=== PATIENT | female | born 1975 | race Caucasian/White ===

== ENCOUNTER → 2016-10-09 | Outpatient (CLI) | payer BC | LOC: FIMAGING 11:41 | PROVIDERS: ATTEND Neurological Surgery | DX: Z47.89 Encounter for other orthopedic aftercare (principal); Z98.1 Arthrodesis status ==

== ENCOUNTER 2017-03-26 06:16 | Day surgery (SDC) | payer BC ==
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
[2017-03-26] MEDS ORDERED: LIDOCAINE 1% 2 ML INJ ID PRN (06:23)
[2017-03-26] MEDS ORDERED: LR 1,000 ML IV ONE (06:23)
[2017-03-26] MEDS ORDERED: LIDOCAINE 1% 2 ML INJ ONE (06:30)
[2017-03-26 06:44] VITALS: PULSE 69
[2017-03-26] MEDS ORDERED: MIDAZOLAM 2 MG/2 ML VIAL IVP ONE (07:06)
[2017-03-26] MEDS ORDERED: LIDOCAINE 1% 300 MG/30 ML SDV ONE (07:06)
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
[2017-03-26] MEDS ORDERED: SILVER NITRATE APPLICATOR 1 APPL TP ONE (07:07)
[2017-03-26] MEDS ORDERED: VASOPRESSIN 20 UNIT/ML VIAL ONE (07:07)
[2017-03-26] MEDS ORDERED: ACETIC ACID IRR SOLN 0.25% 1,000 ML BTL ONE (07:08)
[2017-03-26] MEDS ORDERED: POTASSIUM IODIDE/IODINE (LUGOL'S SOLN) 500 ML PO ONE (07:15)
[2017-03-26] MEDS ORDERED: DEXAMETHASONE 4 MG/ML VIAL ONE (07:17)
[2017-03-26] MEDS ORDERED: ONDANSETRON 4 MG/2 ML VIAL ONE (07:17)
[2017-03-26] MEDS ORDERED: fentaNYL 100 MCG/2 ML INJ ONE (07:17)
[2017-03-26] MEDS ORDERED: PROPOFOL 200 MG/20 ML VIAL ONE (07:17)
[2017-03-26] MEDS ORDERED: LIDOCAINE 2% 100 MG/5 ML SYR ONE (07:17)
[2017-03-26] MEDS ORDERED: MONSELS-FERRIC SUBSULFATE 8 GM SDV TP ONE (07:18)
--- NOTE | 2017-03-26 07:22 | PDHPUP ---
History & Physical Update H&P update statement: This history and physical update is based on an assessment of the patient which was completed after admission or registration (within 24 hours), but prior to the surgery/procedure. H&P update: H&P reviewed & patient examined H&P changes: reviewed possibility of cutting IUD strings with procedure making it harder to remove the iud and possibility of dislodging IUD
[2017-03-26] MEDS ORDERED: fentaNYL 100 MCG/2 ML INJ IVP PRN (08:08)
[2017-03-26] MEDS ORDERED: NALOXONE HCL 0.4 MG/ML INJ IVP PRN (08:08)
[2017-03-26] MEDS ORDERED: MEPERIDINE 25 MG/ML SYR IVP PRN (08:08)
[2017-03-26] MEDS ORDERED: HYDROCODONE/APAP 5/325 TAB PO PRN (08:08)
[2017-03-26] MEDS ORDERED: HYDROmorphONE/DILAUDID 1 MG/ML SYR IVP PRN (08:08)
[2017-03-26] MEDS ORDERED: ACETAMINOPHEN 500 MG TAB PO PRN (08:08)
[2017-03-26] MEDS ORDERED: DEXAMETHASONE 4 MG/ML VIAL IVP PRN (08:08)
[2017-03-26] MEDS ORDERED: PROMETHAZINE HCL 25 MG/ML INJ IVP PRN (08:08)
[2017-03-26] MEDS ORDERED: OXYCODONE/APAP 5/325 TAB PO PRN (08:08)
[2017-03-26] MEDS ORDERED: ONDANSETRON 4 MG/2 ML VIAL IVP PRN (08:08)
--- NOTE | 2017-03-26 08:08 | POSTANESTH ---
Post Anesthetic Evaluation Cardiovascular Status: Normal, Stable, Similar to Pre-Op Cond Respiratory Status: Normal, Stable, Similar to Pre-op Cond. Level of Consciousness/Mental Status: Can Participate in Eval, Moderately Sleepy Pain Control: Adequate, Prn Tx Ordered Nausea/Vomiting Control: Adequate, Prn Tx Ordered Complications Possibly Related to Anesthesia: None Noted
[2017-03-26] MEDS ORDERED: KETOROLAC 30 MG/1 ML SDV ONE (08:14)
[2017-03-26 09:21] VITALS: RESP 16
[2017-03-26 09:29] VITALS: TEMP 97.3
[2017-03-26 09:42] VITALS: BP 111/77; O2SAT 97
== END 2017-03-26 09:51 | disposition home or self-care (01) ==
LOC: FSGY 06:16
PROVIDERS: ATTEND Obstetrics & Gynecology
PROC: 0UBC7ZZ Excision of Cervix, Via Natural or Artificial Opening (ICD-10-PCS; principal; 2017-03-26 07:15)
PROC: 0UDB7ZZ Extraction of Endometrium, Via Natural or Artificial Opening (ICD-10-PCS; principal; 2017-03-26 07:15)
DX: D06.9 Carcinoma in situ of cervix, unspecified (principal); N72 Inflammatory disease of cervix uteri; F32.9 Major depressive disorder, single episode, unspecified; F17.210 Nicotine dependence, cigarettes, uncomplicated; Z98.1 Arthrodesis status
CPT/HCPCS: J1100; J1885; J2001; J2250; J2405; J2704; J3010

== ENCOUNTER 2017-09-22 01:16 | Emergency (ER) | payer BC ==
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
[2017-09-22] MEDS ORDERED: NS 1,000 ML IV ONE (01:54)
[2017-09-22 02:02] LABS: PLATELET COUNT 264 10^3/uL (150-400)
[2017-09-22 15:33] VITALS: BP 133/64; PULSE 74; RESP 18; TEMP 98.1; O2SAT 95
== END 2017-09-22 15:46 | disposition home or self-care (01) ==
PROC: 3E0337Z Introduction of Electrolytic and Water Balance Substance into Peripheral Vein, Percutaneous Approach (ICD-10-PCS; principal; 2017-09-22)
DX: F10.920 Alcohol use, unspecified with intoxication, uncomplicated (principal); F32.9 Major depressive disorder, single episode, unspecified; F17.200 Nicotine dependence, unspecified, uncomplicated
CPT/HCPCS: 80305; G0480

== ENCOUNTER 2017-12-11 04:31 | Observation (INO) | payer BC ==
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
[2017-12-11] MEDS ORDERED: NS 1,000 ML IV ONE ×2 (04:45→05:00)
[2017-12-11 05:02] LABS: PLATELET COUNT 380 10^3/uL (150-400)
[2017-12-11] MEDS ORDERED: fentaNYL 100 MCG/2 ML INJ IVP ONE ×2 (05:05→06:01)
[2017-12-11] MEDS ORDERED: IOPAMIDOL (ISOVUE-300) 100 ML BTL ONE (05:09)
[2017-12-11 05:10] LABS: CREATINE KINASE 792 IU/L (0-156)
[2017-12-11] MEDS ORDERED: NALOXONE HCL 0.4 MG/ML INJ IVP PRN (06:07)
[2017-12-11 06:13] LABS: PLATELET COUNT 335 10^3/uL (150-400)
[2017-12-11] MEDS ORDERED: ACETAMINOPHEN 325 MG TAB PO SCH (06:15)
[2017-12-11] MEDS ORDERED: ONDANSETRON DISINTEGRATING 4 MG TAB PO PRN (06:15)
[2017-12-11] MEDS ORDERED: LR 1,000 ML IV SCH (06:30)
[2017-12-11] MEDS: ACETAMINOPHEN 500 MG TAB PO SCH ×2 (07:30→16:19)
[2017-12-11] MEDS: HYDROmorphone HCL/NS 0.5 MG/ML SYR IVP PRN ×6 (07:56→22:18)
[2017-12-11] MEDS ORDERED: POLYETHYLENE GLYCOL 3350 17 GM PKT PO PRN (10:18)
[2017-12-11] MEDS ORDERED: LACTULOSE 20 GM/30 ML UDCUP PO PRN (10:18)
[2017-12-11] MEDS ORDERED: MAGNESIUM HYDROXIDE 30 ML UDCUP PO PRN (10:18)
[2017-12-11] MEDS ORDERED: BISACODYL 10 MG SUPP PR PRN (10:18)
--- NOTE | 2017-12-11 10:20 | GCON ---
[f rep st] CONSULTATION NEUROSURGICAL CONSULTATION ADDENDUM TO PREVIOUSLY DICTATED REPORT The patient was seen and examined by me personally around noon today. Her imaging studies were also reviewed. I agree with Rafael Valadez's plan and I have also spoken to Dr. Benjamin Goetz about the patient. /[id number] Dictated By: Jose Askew MD [id number], [facility] ORIGINAL REPORT CHIEF COMPLAINT: Neck pain, back pain after fall. HISTORY OF PRESENT ILLNESS: The patient is a 42-year-old female who has a history of a previous neck fracture with central cord syndrome as well as depression. She had a previous C5-6 and C6-7 anterior cervical diskectomy and arthrodesis by Dr. Fay Bassett in approximately 2014. She was apparently intoxicated at her boyfriend's house when she possibly fell down some stairs. She was ambulatory after this event, but was apparently knocking on the wrong door. She was contacted by police, and EMS was contacted. They transported the patient by ambulance to the [facility] emergency department. 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 Neurosurgical consultation was requested. She currently complains of neck pain and back pain. She denies any upper extremity radicular pain or weakness. She denies any lower extremity pain , weakness, paresthesias, ataxia, bowel or bladder problems. PAST MEDICAL HISTORY: 1. Depression. 2. Central cord syndrome. 3. Previous cervical fusion. PAST SURGICAL HISTORY: Includes C5-6, C6-7 anterior cervical diskectomy and arthrodesis in approximately 2014. MEDICATIONS: Prior to admission are Lyrica. FAMILY HISTORY: Patient has no family history of spine problems. SOCIAL HISTORY: Patient is single and does not have any children. She does smoke, does drink alcohol, and has been using some recreational cannabis for her pain. REVIEW OF SYSTEMS: Negative. PHYSICAL EXAM: GENERAL: Patient is a 42-year-old female lying in bed in mild- to-moderate distress. HEAD, EYES, EARS, NOSE, AND THROAT: Negative to drainage. EXTREMITIES: [place], warm, and dry. NECK: She is wearing a hard cervical collar. NEUROLOGICAL: Patient is awake, alert, oriented x4. Pupils equal, round, reactive to light. Extraocular motions are intact. There is no evidence of facial droop. Tongue and uvula are midline. Spinal access muscles are intact. Her motor strength appears to be 5/5 in arms and legs. Sensation is grossly intact to light touch in her arms and legs. Deep tendon reflexes are 1+/4 in bilateral biceps, triceps, brachioradialis, patellar, and Achilles. There is negative Dev's with no clonus. DIAGNOSTIC STUDIES: A CT scan of the cervical spine without contrast shows preservation of the sagittal alignment. There are postoperative changes from the C5-6 and C6-7 anterior cervical diskectomy and arthrodesis. There are lucencies through both of those levels with disruption of the hardware consistent with a pseudoarthrosis of both levels. There is no evidence of an acute fracture. A CT scan of the abdomen and pelvis with sagittal reconstructions shows an acute L1, L2, L3, and L4 compression fracture. There is moderate degeneration collapse at L5-S1 level. There is no evidence of retropulsion. IMPRESSION: This is a 42-year-old female with C5-6 and C6-7 pseudoarthrosis following her previous cervical fusion in [address] Bassett. She also has an acute L1, L2, L3, and L4 compression fracture after a fall. She is neurologically stable. PLAN: All the above discussed in detail with the patient. At this point in time, she did have neck pain with palpation, so we will keep her in the hard collar. Her pseudoarthrosis, we can follow up with on an outpatient basis and determine whether or not she would wish to proceed with surgical intervention to fix this nonunion. In regard to her lumbar spine, we will obtain an MRI of the lumbar spine without contrast to better evaluate these fractures. We will also contact [facility] [employer] to have her fit with a Kensett brace. We would like this Carmen brace to be worn at all times when out of bed. We will obtain standing x-rays of her lumbar spine once she has been fit with the brace. We will attempt to clear her cervical spine once her neck pain improves.. Please call with any neurological changes. /[id number]/MODL MTDD
[2017-12-11] MEDS ORDERED: LORazepam 2 MG/ML INJ IVP PRN (10:21)
[2017-12-11] MEDS ORDERED: LIDOCAINE/DEXTROSE 500 ML IV SCH (10:30)
[2017-12-11] MEDS: PREGABALIN 100 MG CAP PO SCH ×2 (10:33→20:09)
--- NOTE | 2017-12-11 10:35 | GHP ---
[f rep st] PREOP HISTORY AND PHYSICAL DATE OF ADMISSION: 12/11/2017 HISTORY: The patient is a 42-year-old female who was found knocking on the door of a house or dwelling which was not hers by the police. Her significant other was contacted, and she was brought to the hospital by POV for evaluation. She was intoxicated with a blood alcohol of 277. She had taken Lyrica for the first time after more than a month's hiatus yesterday. 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 Fay Bassett. The neck was stabilized by anterior pinning. On today's evaluation, one of the pins is fractured. The patient has no recollection for the events of this evening, but given her injuries, it is felt that she has fallen. She has a contusion on her occiput. She has a right 1st rib fracture. She has tenderness of her manubrium. She has tenderness of her left arm without evidence of humeral or elbow fracture. She has 2+ blood in her urine, but only 5-10 red cells, as well as an elevated CPK, indicating myoglobinuria. She has anterior wedging of L1, L2, L3, and L4 with a transverse fracture of L5. I was asked to come see her for evaluation, admission for trauma observation. First interaction was at approximately 6:20. Note, she had arrived at 3:30 and I was called at 6:10, when the studies were available. At that point, she was more confused. Now, at 9:30, on re-evaluation, she is much more awake. She is complaining bitterly of lumbar pain, left elbow pain, and now right ankle pain. SOCIAL HISTORY: She started smoking at age 17 and smoked at a peak of 1 pack per day but is now down to a quarter pack per day. She admits to approximately 10 shots of vodka last night and report that she drinks 3-4 days per week. ALLERGIES: She has no known drug allergies. MEDICATIONS: The medications she stopped over a month ago were Wellbutrin 300 mg a day and Lyrica 200 mg (which she says she was taking 3 times a day). PAST SURGICAL HISTORY: Prior surgeries have included a pinning of her right index finger with subsequent pin removal for a spiral fracture. She has had a tonsillectomy, wisdom tooth extraction, a left orbital floor reconstruction from a presumed blowout fracture. She has had a cervical cone biopsy. PAST MEDICAL HISTORY: Although there is no history of rheumatic fever, she did have scarlet fever twice as a young girl. There is no history of TB or hepatitis. She has not had a transfusion. REVIEW OF SYSTEMS: She has had a concussion. She has had her nose broken 6 times. She has 1 right upper dental crown. She has never had a mammogram. Her last Pap smear was 6 months ago and had abnormal cells, resulting in the cone biopsy mentioned above. There are no limits on her activities. No history of steroid use. 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 PHYSICAL EXAMINATION: VITAL SIGNS: On admission, she had a blood pressure 130/ 90 at 1:33. Currently, her blood pressure is 106/73. GENERAL: She is awake, alert, and pleasant. NEUROLOGIC: She is oriented to person, place, and time. GCS is 15. She is moving all extremities and has equal strength in both hands and feet, though it is painful for her to flex her hips bilaterally because of her back issue. I do not detect any focal lateralizing neurologic finding. HEENT: Skull has a small hematoma in the occiput. She is in a cervical collar , and that is not removed at this time. CHEST: She is tender in the right upper chest and manubrium sternum. Her chest is otherwise nontender to lateral compression. EXTREMITIES: Her right upper extremity is totally unremarkable and has full range of motion. Left upper extremity is tender in the medial posterior aspect of the distal forearm. She has full range of motion of the elbow joint. Hands are unremarkable. Extremities are unremarkable except for the right ankle, which is tender on the posterior aspect of the medial malleolus (followup x-ray pending). CARDIAC: Shows S1, S2 to be normal with normal split of S2 without murmurs, rubs, or gallops. ABDOMEN: Soft, nontender. PELVIS: Stable to AP and lateral compression. BACK: On rolling her on her side, her back is palpably tender over the lumbar region. There are no injuries to her back. LABORATORY DATA: Her anion gap was initially 21 with a CK of 792. Her beta HCG was negative. Her UA had, as mentioned above, 2+ blood and only 5-15 red cells per high-power field. Her urine was also positive for marijuana. Her white blood cell count on admission was 31, which dropped to 26, and her hematocrit dropped from 46 to 41. X-rays of her left humerus were negative. Her neck appears to be in line. Neurosurgery will see her and evaluate further , possibly with an MRI. She does have a right 1st rib fracture, has the anterior wedging of L1, L2, L3, and L4 with a transverse fracture of L5. IMPRESSION: Patient whose trauma is unknown but suspected to be a fall of a fair distance with a hematoma in her occiput, a right first rib fracture, a fracture of the pinning of C5. L1, L2, L3, and L4 fractures with an L5 transverse fracture. Myoglobinuria. She has an anion gap which I presume is due to alcohol. Followup laboratories will be obtained. At this point, awaiting Neurosurgery's input. Multimodal pain control will be used. Observation for ETOH withdrawal will be maintained. Neurosurgery to see her today. /[id number]/MODL MTDD
[2017-12-11] MEDS ORDERED: KETAMINE 500 MG in D5W 500 ML IV SCH (11:00)
[2017-12-11] MEDS: LIDOCAINE 4%/MENTHOL 1% PATCH TD SCH (11:34)
[2017-12-11] MEDS: FOLIC ACID 1 MG TAB PO SCH (11:35)
[2017-12-11] MEDS: MULTIVITAMINS 1 EACH TAB PO SCH (11:35)
[2017-12-11] MEDS: KETOROLAC 30 MG/1 ML SDV IVP SCH ×2 (11:35→17:51)
[2017-12-11] MEDS: PANTOPRAZOLE SODIUM 40 MG TAB PO SCH ×2 (11:35→20:10)
--- NOTE | 2017-12-11 11:38 | ASMTCASEMG ---
Living Arrangements What is your living Answers: With Partner arrangement? Who do you live with? Type Of Residence What kind of residence do Answers: Apartment you live in? Discharge Plan Comments Coordination Status Comments Notes: Patient is a 42yo single woman who lives with her boyfriend in [place]. Patient had taken her Lyrica for the first time in over a month and admitted to drinking 10 shots of vodka and was brought to the hospital after having been found knocking on the door of a house that was not hers. BAL was 277. Patient's trauma is unknown but it is thought she had a fall of a fair distance with a hematoma in her occiput, a right first rib fracture, and a fracture of the pinning of C5. L1,2,3,4 fractures with an L5 transverse fracture. PT/OT/SPL/Inpatient rehab ordered. Cage completed. D/C plan TBD. CM will follow. Date Signed: 12/11/2017 11:38 AM Electronically Signed By:Melinda Díaz LCSW
[2017-12-11] MEDS ORDERED: KETOROLAC 30 MG/1 ML SDV IVP SCH (12:00)
--- NOTE | 2017-12-11 16:47 | ASMTCAGE ---
CAGE Do you feel you ought to Answers: Yes cut down on your drinking or drug use? Do people annoy you by Answers: No criticizing your drinking or drug use? Do you feel guilty about Answers: Yes your drinking or drug use? 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 Additional Comments Patient is receptive to resources and is ready to get sober. Date Signed: 12/11/2017 04:47 PM Electronically Signed By:Melinda Díaz LCSW
--- NOTE | 2017-12-11 17:10 | ASMTCMCOM ---
CM Note CM Note Notes: Spoke with patient about who she wants to serve as proxy and she named her sister,Cherie and her boyfriend Esequiel. Spoke with Rafael who is willing to serve and left the paperwork with the charge nurse for patient to sign when he comes in at 7:00. CM will speak with her sister tomorrow regarding the proxy process. Completed the CAGE. Patient is receptive to A and D resources which CM will go over with her in the morning. CM will follow. Date Signed: 12/11/2017 05:10 PM Electronically Signed By:Melinda Díaz LCSW
[2017-12-11] MEDS: SENNOSIDES/DOCUSATE SODIUM TAB PO SCH (20:09)
[2017-12-11] MEDS: PATCH REMOVAL 1 EA PATCH TD SCH (23:46)
[2017-12-12] MEDS: KETOROLAC 30 MG/1 ML SDV IVP SCH ×4 (00:26→17:31)
[2017-12-12] MEDS: ACETAMINOPHEN 500 MG TAB PO SCH ×4 (00:27→22:29)
[2017-12-12] MEDS: HYDROmorphone HCL/NS 0.5 MG/ML SYR IVP PRN ×4 (02:16→08:59)
[2017-12-12 05:06] LABS: PLATELET COUNT 231 10^3/uL (150-400)
--- NOTE | 2017-12-12 07:35 | SOAPPROG ---
DAYNA Progress Note Assessment/Plan: Assessment: 42 yo F sp fall with L1, L2, L3, L4 acute compression fractures with pseudoarthrosis at C5/6, C6/7 from previous ACDF 3 years ago Plan: neuro: stable and doing better overall MRI with acute fractures at L1-4 with chronic DJD/modic changes at L5/S1 patient should wear jewit brace at all times when out of bed will check standing x-rays of lumbar spine to evaluate alignment of fractures with brace on continued neck pain with palpation, will keep hard collar for now PT/OT ok to transfer to floor when cleared by Trauma if standing x-rays are stable, then ok to discharge routine neuro checks please call with neuro changes discussed with Dr Menchaca 12/12/17 07:31 Subjective: continued back pain and neck pain, no arm pain, no weakness. Objective: Vital Signs Temp Pulse Resp BP Pulse Ox 36.9 C 79 17 123/85 H 98 12/11/17 11:42 12/12/17 04:00 12/12/17 04:00 12/12/17 04:00 12/12/17 04:00 Laboratory Results 12/12/17 04:40 12/12/17 04:40 12/11/17 12/12/17 12/13/17 05:59 05:59 05:59 Intake Total 5556 Output Total 3250 Balance 2306 AAOX4, +FC PERRL, EOMI, no facial droop 5/5 + light touch ICD10 Worksheet Patient Problems: Problems Problem Status Onset Alcohol intoxication Acute Compression fracture of L1 lumbar vertebra Acute L2 vertebral fracture Acute L3 vertebral fracture Acute L4 vertebral fracture Acute Multiple contusions Acute Rib fracture Acute Central cord syndrome Acute Cervical stenosis of spine Acute Fracture of orbital floor, blow-out, left, closed Acute Upper extremity pain Acute
[2017-12-12] MEDS: LIDOCAINE 4%/MENTHOL 1% PATCH TD SCH (08:58)
[2017-12-12] MEDS: PREGABALIN 100 MG CAP PO SCH ×2 (08:59→20:32)
[2017-12-12] MEDS: FOLIC ACID 1 MG TAB PO SCH (08:59)
[2017-12-12] MEDS: PANTOPRAZOLE SODIUM 40 MG TAB PO SCH ×2 (08:59→20:32)
[2017-12-12] MEDS: MULTIVITAMINS 1 EACH TAB PO SCH (08:59)
[2017-12-12] MEDS: THIAMINE HCL 500 MG in NS 100 ML IV SCH (08:59)
[2017-12-12] MEDS: SENNOSIDES/DOCUSATE SODIUM TAB PO SCH ×2 (08:59→20:32)
[2017-12-12] MEDS: HYDROmorphONE/DILAUDID 2 MG TAB PO PRN ×3 (14:15→20:33)
--- NOTE | 2017-12-12 16:18 | ASDISCHSUM ---
Discharge Information Plan Status:Home with No Needs Medically Cleared to Leave:12/12/2017 Discharge Date:12/12/2017 CM D/C Disposition:Home, Routine, Self-Care ADT D/C Disposition: Projected Discharge Date:12/12/2017 12:00 AM Transportation at D/C: Discharge Delay Reason: Follow-Up Date:12/12/2017 12:00 AM Discharge Slot: Final Diagnosis: Placement Information Patient Contact Information Contact Name:CAROLA Relationship:Other Address:[address] City:[place] Alternate Phone: State/Zip Code:[place] [address] Email: Financial Information Financial Class:HMO and PPO Plans Primary Plan Desc: OUT OF STATE PPO Primary Plan Number:[id number] Secondary Plan Desc: Secondary Plan Number: Assessment Information [facility] Initial CM Assessment Living Arrangements What is your living Answers: With Partner arrangement? Who do you live with? Type Of Residence What kind of residence do Answers: Apartment you live in? Discharge Plan Comments Coordination Status Comments Notes: Patient is a 42yo single woman who lives with her boyfriend in [place]. Patient had taken her Lyrica for the first time in over a month and admitted to drinking 10 shots of vodka and was brought to the hospital after having been found knocking on the door of a house that was not hers. BAL was 277. Patient's trauma is unknown but it is thought she had a fall of a fair distance with a hematoma in her occiput, a right first rib fracture, and a fracture of the pinning of C5. L1,2,3,4 fractures with an L5 transverse fracture. PT/OT/SPL/Inpatient rehab ordered. Cage completed. D/C plan TBD. CM will follow. Date Signed: 12/11/2017 11:38 AM Electronically Signed By:Melinda Díaz LCSW CAGE Questionnaire CAGE Do you feel you ought to Answers: Yes cut down on your drinking or drug use? Do people annoy you by Answers: No criticizing your drinking or drug use? Do you feel guilty about Answers: Yes your drinking or drug use? 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 Additional Comments Patient is receptive to resources and is ready to get sober. Date Signed: 12/11/2017 04:47 PM Electronically Signed By:Melinda Díaz LCSW [facility] Progress Note CM Note CM Note Notes: Spoke with patient about who she wants to serve as proxy and she named her sister,Cherie and her boyfriend Esequiel. Spoke with Rafael who is willing to serve and left the paperwork with the charge nurse for patient to sign when he comes in at 7:00. CM will speak with her sister tomorrow regarding the proxy process. Completed the CAGE. Patient is receptive to A and D resources which CM will go over with her in the morning. CM will follow. Date Signed: 12/11/2017 05:10 PM Electronically Signed By:Melinda Díaz LCSW Intervention Information
[2017-12-12] MEDS ORDERED: METHOCARBAMOL 750 MG TAB PO PRN (17:45)
--- NOTE | 2017-12-12 18:10 | TRAUMAPNT ---
Trauma Tertiary Progress Note New Findings: No new findings Assessment/Plan: PAD#2 12/12/2017 Assessment: Ketamine helped over last 24 hours but is now off as she is out of ICU/stepdown C-spine - stable in brace right 1st rib - not currently an issue left elbow - x-ray series negative.pain much improved lumbar spine - better butt main focus of pain. Brace somewhat helpful. right ankle - no longer an issue Plan: increase miralax encourage use of muscle relaxer Subjective: No stool or flatus yet Objective: Vital Signs Temp Pulse Resp BP Pulse Ox 36.8 C 73 14 136/85 H 91 L 12/12/17 16:00 12/12/17 16:00 12/12/17 16:00 12/12/17 16:00 12/12/17 16:00 Laboratory Results 12/12/17 04:40 12/12/17 04:40 12/11/17 12/12/17 12/13/17 05:59 05:59 05:59 Intake Total 5556 850 Output Total 3250 450 Balance 2306 400 - C-Spine Clearance Cervical Spine Cleared: No Physical Exam - Physical Exam General Appearance: WD/WN, alert, mild distress Neck: other (In brace) Respiratory: chest non-tender, lungs clear, normal breath sounds Cardiac/Chest: regular rate, rhythm Abdomen: normal bowel sounds, non-tender, soft Pelvic Exam: deferred Rectal: deferred Back: Normal inspection Skin: normal color, warm/dry Lymphatic: no adenopathy Extremities: normal range of motion, non-tender, normal inspection, normal capillary refill Neuro/Psych: no motor/sensory deficits, alert, normal mood/affect, oriented x 3 Time Spent w/Patient (minutes): 25
[2017-12-12] MEDS: POLYETHYLENE GLYCOL 3350 17 GM PKT PO SCH (20:34)
[2017-12-12] MEDS: PATCH REMOVAL 1 EA PATCH TD SCH (20:42)
[2017-12-13] MEDS: KETOROLAC 30 MG/1 ML SDV IVP SCH ×2 (00:04→06:01)
[2017-12-13] MEDS: HYDROmorphONE/DILAUDID 2 MG TAB PO PRN ×3 (00:04→12:29)
[2017-12-13] MEDS: ACETAMINOPHEN 500 MG TAB PO SCH (06:00)
--- NOTE | 2017-12-13 07:33 | NEUSURGPN ---
Assessment/Plan: Assessment: 42 yo F sp fall with L1, L2, L3, L4 acute compression fractures with pseudoarthrosis at C5/6, C6/7 from previous ACDF 3 years ago Plan: neuro: stable and doing better overall MRI with acute fractures at L1-4 with chronic DJD/modic changes at L5/S1 patient should wear Jewitt brace at all times when out of bed continued neck pain with palpation, will keep hard collar for now PT/OT ok to discharge per Trauma routine neuro checks please call with neuro changes discussed with Dr Menchaca Subjective: back/neck pain Objective: NAD A&Ox3 MAEx4 5/5 and equal in BUE and BLE. Catheter Insertion Date: 12/11/17 - Physician Discussed Patient with : [facility] Physical Exam - Vitals, I&O, Labs I and O 12/12/17 12/13/17 12/14/17 05:59 05:59 05:59 Intake Total 5556 850 Output Total 3250 450 Balance 2306 400 Weight 78.47 kg Intake: Oral (ml) 1400 850 IV Intake (ml) 700 IV Infused (ml) 3456 Ketamine 500 mg In D5w 265 500 ml @ As Directed IV CONT OKSANA Rx#:[id number] Lr 1,000 ml @ 100 mls/hr 1191 IV CONT OKSANA Rx#: [id number] Output: Urine (ml) 3250 450 Catheter 2550 350 Toilet 100 Other: Intake Quantity Yes Yes Sufficient Number of Voids Toilet 2 Vital Signs Temp Pulse Resp BP Pulse Ox 36.8 C 78 18 126/89 H 91 L 12/13/17 00:00 12/13/17 00:00 12/13/17 00:00 12/13/17 00:00 12/13/17 00:00 Laboratory Results 12/12/17 04:40 12/12/17 04:40 ICD10 Worksheet Patient Problems: Problems Problem Status Onset Alcohol intoxication Acute Compression fracture of L1 lumbar vertebra Acute L2 vertebral fracture Acute L3 vertebral fracture Acute L4 vertebral fracture Acute Multiple contusions Acute Rib fracture Acute Central cord syndrome Acute Cervical stenosis of spine Acute Fracture of orbital floor, blow-out, left, closed Acute Upper extremity pain Acute
[2017-12-13 08:11] VITALS: BP 126/76
[2017-12-13] MEDS ORDERED: PNEUMOCOCCAL 0.5ML VACCINE VIAL IM ONE ×2 (09:59→13:00)
[2017-12-13] MEDS: PREGABALIN 100 MG CAP PO SCH (10:01)
[2017-12-13] MEDS: PANTOPRAZOLE SODIUM 40 MG TAB PO SCH (10:01)
[2017-12-13] MEDS: FOLIC ACID 1 MG TAB PO SCH (10:01)
[2017-12-13] MEDS: LIDOCAINE 4%/MENTHOL 1% PATCH TD SCH (10:02)
[2017-12-13] MEDS: MULTIVITAMINS 1 EACH TAB PO SCH (10:02)
[2017-12-13] MEDS: POLYETHYLENE GLYCOL 3350 17 GM PKT PO SCH (10:03)
[2017-12-13] MEDS: SENNOSIDES/DOCUSATE SODIUM TAB PO SCH (10:04)
--- NOTE | 2017-12-13 11:29 | TRAUMAPN ---
Trauma Progress Note - Problem/Surgery Performed (1) Compression fracture of L1 lumbar vertebra Qualifiers: Encounter type: initial encounter Fracture type: closed Qualified Code(s) : S32.010A - Wedge compression fracture of first lumbar vertebra, initial encounter for closed fracture (2) L2 vertebral fracture Qualifiers: Encounter type: initial encounter Fracture type: closed Fracture morphology: unspecified fracture morphology Qualified Code(s): S32.029A - Unspecified fracture of second lumbar vertebra, initial encounter for closed fracture (3) L3 vertebral fracture Qualifiers: Encounter type: initial encounter Fracture type: closed Fracture morphology: unspecified fracture morphology Qualified Code(s): S32.039A - Unspecified fracture of third lumbar vertebra, initial encounter for closed fracture (4) L4 vertebral fracture Qualifiers: Encounter type: initial encounter Fracture type: closed Fracture morphology: unspecified fracture morphology Qualified Code(s): S32.049A - Unspecified fracture of fourth lumbar vertebra, initial encounter for closed fracture (5) Rib fracture Assessment/Plan: non-displacedright first rib fx Qualifiers: Encounter type: initial encounter Rib fracture type: single rib Fracture type: closed Laterality: right Qualified Code(s): S22.31XA - Fracture of one rib, right side, initial encounter for closed fracture Assessment/Plan: s/p unwitnessed injury/alcohol intox multiple stable fractures of the cervical/lumbar spine to be managed by neurosurgery non-operatively FU neurosurgery as outpatient EtOH and tobacco cessation advised. Arlin Zimmerman MD, FACS Subjective: resting comfortably/no signs of withdrawal wants to go home Objective: Vital Signs Temp Pulse Resp BP Pulse Ox 37.0 C 82 16 126/76 H 91 L 12/13/17 08:00 12/13/17 08:00 12/13/17 08:00 12/13/17 08:00 12/13/17 08:00 Laboratory Results 12/12/17 04:40 12/12/17 04:40 12/12/17 12/13/17 12/14/17 05:59 05:59 05:59 Intake Total 5556 850 Output Total 3250 450 Balance 2306 400 - C-Spine Clearance Cervical Spine Cleared: No Physical Exam - Physical Exam General Appearance: no apparent distress EENT: normal ENT inspection Neck: other ([place] collar/patient request [place] collar) Respiratory: chest non-tender, lungs clear, normal breath sounds Cardiac/Chest: regular rate, rhythm Abdomen: non-tender, soft Pelvic Exam: deferred Rectal: deferred Skin: normal color, warm/dry Extremities: normal range of motion, non-tender Neuro/Psych: no motor/sensory deficits, alert, normal mood/affect, oriented x 3 Time Spent w/Patient (minutes): 30 ([facility] paperwork completed)
[2017-12-13] MEDS: THIAMINE HCL 500 MG in NS 100 ML IV SCH (11:46)
[2017-12-13] MEDS ORDERED: IBUPROFEN 600 MG TAB PO SCH (12:00)
[2017-12-14] MEDS ORDERED: THIAMINE HCL 100 MG TAB PO SCH (10:21)
== END 2017-12-13 14:36 | disposition home or self-care (01) ==
LOC: F2N 07:40 → F3N 12-12 12:30
PROVIDERS: ADMIT Surgery; ATTEND Surgery
DX: S32.010A Wedge compression fracture of first lumbar vertebra, initial encounter for closed fracture (principal); S32.020A Wedge compression fracture of second lumbar vertebra, initial encounter for closed fracture; S32.030A Wedge compression fracture of third lumbar vertebra, initial encounter for closed fracture; S32.040A Wedge compression fracture of fourth lumbar vertebra, initial encounter for closed fracture; S22.31XA Fracture of one rib, right side, initial encounter for closed fracture; T84.226A Displacement of internal fixation device of vertebrae, initial encounter; R31.9 Hematuria, unspecified; F10.229 Alcohol dependence with intoxication, unspecified; F17.200 Nicotine dependence, unspecified, uncomplicated; W19.XXXA Unspecified fall, initial encounter
CPT/HCPCS: 70450; 71045; 71260; 72100; 72125; 72148; 73060; 73080; 73610; 74177; 92523; 92610; 96361; 96374; 97116; 97161; 97166; 99285; G0378; 80305; 82947-QW; G0480; J1170; J1885; J3010; J3411; L0172; Q9967

== ENCOUNTER 2017-12-15 16:24 | Emergency (ER) | payer BC ==
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
[2017-12-15 17:27] VITALS: BP 138/88
== END 2017-12-15 17:26 | disposition home or self-care (01) ==
DX: S12.9XXD Fracture of neck, unspecified, subsequent encounter (principal); S32.009D Unspecified fracture of unspecified lumbar vertebra, subsequent encounter for fracture with routine healing; F17.200 Nicotine dependence, unspecified, uncomplicated; Z76.0 Encounter for issue of repeat prescription; W10.8XXD Fall (on) (from) other stairs and steps, subsequent encounter

== ENCOUNTER → 2018-01-14 | Outpatient (CLI) | payer BC | LOC: FIMAGING 15:06 | PROVIDERS: ATTEND Physician Assistant Surgical | DX: S32.019D Unspecified fracture of first lumbar vertebra, subsequent encounter for fracture with routine healing (principal); S32.029D Unspecified fracture of second lumbar vertebra, subsequent encounter for fracture with routine healing; S32.039D Unspecified fracture of third lumbar vertebra, subsequent encounter for fracture with routine healing; Z98.890 Other specified postprocedural states ==

== ENCOUNTER → 2018-02-14 | Outpatient (CLI) | payer BC | LOC: FIMAGING 10:28 | PROVIDERS: ATTEND Physician Assistant Surgical | DX: S32.010D Wedge compression fracture of first lumbar vertebra, subsequent encounter for fracture with routine healing (principal); S32.020D Wedge compression fracture of second lumbar vertebra, subsequent encounter for fracture with routine healing; S32.030D Wedge compression fracture of third lumbar vertebra, subsequent encounter for fracture with routine healing; S32.040D Wedge compression fracture of fourth lumbar vertebra, subsequent encounter for fracture with routine healing ==

== ENCOUNTER 2018-05-02 23:25 | Emergency (ER) | payer BC ==
[2018-05-03] MEDS ORDERED: HYDROCODONE/APAP 5/325 TAB PO ONE (00:07)
[2018-05-03] MEDS ORDERED: IBUPROFEN 200 MG TAB PO ONE (00:07)
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
[2018-05-03 02:15] VITALS: BP 121/90
[2018-05-03] MEDS ORDERED: HYDROCOD/APAP 5/325 PREPACK#6 BTL TAKEHOME ONE (02:18)
== END 2018-05-03 02:44 | disposition home or self-care (01) ==
PROC: 0HQFXZZ Repair Right Hand Skin, External Approach (ICD-10-PCS; principal; 2018-05-02)
DX: S62.614B Displaced fracture of proximal phalanx of right ring finger, initial encounter for open fracture (principal); S61.411A Laceration without foreign body of right hand, initial encounter; S09.90XA Unspecified injury of head, initial encounter; V17.0XXA Pedal cycle driver injured in collision with fixed or stationary object in nontraffic accident, initial encounter; Y93.55 Activity, bike riding

== ENCOUNTER 2018-05-08 10:48 | Day surgery (SDC) | payer BC ==
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
[2018-05-08] MEDS ORDERED: ceFAZolin 2 GM/DEXTROSE 100 ML IV ONE (10:55)
[2018-05-08] MEDS ORDERED: LR 1,000 ML IV ONE (10:56)
[2018-05-08] MEDS ORDERED: POLYMYXIN B SULFATE 500,000 UNIT/10 ML SYR IRR ONE (11:44)
[2018-05-08] MEDS ORDERED: BUPIVACAINE 0.5% 30 ML SDV ONE (11:44)
[2018-05-08] MEDS ORDERED: MIDAZOLAM 2 MG/2 ML VIAL IVP ONE (12:22)
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
[2018-05-08] MEDS ORDERED: fentaNYL 100 MCG/2 ML INJ ONE ×3 (12:31→15:01)
[2018-05-08] MEDS ORDERED: PROPOFOL/EMULSION 500 MG/50 ML BOTTLE IV ONE ×2 (12:31→13:03)
--- NOTE | 2018-05-08 12:38 | PDHPUP ---
History & Physical Update H&P update statement: This history and physical update is based on an assessment of the patient which was completed after admission or registration (within 24 hours), but prior to the surgery/procedure. H&P update: H&P reviewed & patient examined, no change in patient's condition since H&P completed
[2018-05-08] MEDS ORDERED: LIDO/EPI 1% **for epidural** 30 ML SDV ONE (12:51)
[2018-05-08] MEDS ORDERED: ONDANSETRON 4 MG/2 ML VIAL ONE (13:04)
[2018-05-08] MEDS ORDERED: DEXAMETHASONE 4 MG/ML VIAL ONE (13:04)
--- NOTE | 2018-05-08 13:57 | POSTOPPROG ---
Post Op Note Date of Operation: 05/08/18 Surgeon: Marquis Linton Anesthesia: LMA Pre-op Diagnosis: fracture right ring finger proximal phalanx Post-op Diagnosis: same Procedure: ORIF right ring finger proximal phalanx Inf/Abcess present in the surg proc area at time of surgery?: No EBL: Minimal
[2018-05-08] MEDS ORDERED: LR 500 ML IV PRN (13:59)
[2018-05-08] MEDS ORDERED: HYDROCODONE/APAP 5/325 TAB PO PRN (13:59)
[2018-05-08] MEDS ORDERED: ONDANSETRON 4 MG/2 ML VIAL IVP PRN (13:59)
[2018-05-08] MEDS ORDERED: NALOXONE HCL 0.4 MG/ML INJ IVP PRN (13:59)
[2018-05-08] MEDS ORDERED: oxyCODONE IR 5 MG TAB PO PRN (13:59)
--- NOTE | 2018-05-08 14:00 | POSTANESTH ---
Post Anesthetic Evaluation Cardiovascular Status: Similar to Pre-Op Cond Respiratory Status: Similar to Pre-op Cond. Level of Consciousness/Mental Status: Alert and Oriented Pain Control: Adequate, Prn Tx Ordered Nausea/Vomiting Control: Adequate, Prn Tx Ordered Complications Possibly Related to Anesthesia: None Noted
[2018-05-08] MEDS: fentaNYL 100 MCG/2 ML INJ IVP PRN ×4 (14:02→15:03)
--- NOTE | 2018-05-08 14:17 | GOP ---
DATE OF OPERATION: 05/08/2018 SURGEON: Marquis Linton MD PREOPERATIVE DIAGNOSIS: Comminuted fracture, proximal phalanx, right ring finger. POSTOPERATIVE DIAGNOSIS: Comminuted fracture, proximal phalanx, right ring finger. PROCEDURE PERFORMED: Open reduction, internal fixation, proximal phalanx, right ring finger. FINDINGS: DESCRIPTION OF PROCEDURE: With the patient lying supine under general anesthesia, right hand and for earm were prepped and draped in the usual fashion. The preexisting laceration on the dorsum of the b ase of the ring finger was extended distally in a curving fashion and skin flaps were elevated exposi ng the underlying extensor apparatus. A small puncture area was noted in the extensor apparatus just ulnar to the central slip. This was extended proximally and distally for exposure and with perioste al elevation the fracture was well identified. The distal shaft was strong, intact bone. Proximally , there were multiple comminutions with [address] of place in a fairly truncated little pr oximal segment. A T-shaped 1.3 mm plate was fixated on the proximal segment using monocortical screw s on each side and on the central screw a 12 mm bicortical screw was able to be placed, giving good f ixation proximally. The distal shaft was reduced into very good alignment and three 6 mm monocortica l screws were placed. The largest comminuted fragment was reduced into a good a position as possible and a single 6 mm screw was placed to hold it. Closure of the periosteum and extensor apparatus was carried out with 4-0 Vicryl. Skin was closed with 5-0 Prolene. Dressings of Xeroform gauze applied followed by an ulnar gutter fiberglass splint. The procedure was tolerated well. Estimated blood l oss less than 10 mL. Tourniquet time 32 minutes. /[id number]/MODL
[2018-05-08] MEDS ORDERED: HYDROCODONE/APAP 5/325 TAB ONE (14:30)
[2018-05-08 15:31] VITALS: BP 118/78
== END 2018-05-08 15:28 | disposition home or self-care (01) ==
LOC: FSGY 10:48
PROVIDERS: ATTEND Plastic Surgery
PROC: 0PST04Z Reposition Right Finger Phalanx with Internal Fixation Device, Open Approach (ICD-10-PCS; principal; 2018-05-08 12:30)
DX: S62.614A Displaced fracture of proximal phalanx of right ring finger, initial encounter for closed fracture (principal); V18.0XXA Pedal cycle driver injured in noncollision transport accident in nontraffic accident, initial encounter; Y93.55 Activity, bike riding; Z98.1 Arthrodesis status; Z72.0 Tobacco use
CPT/HCPCS: C1713; J0690; J1100; J2250; J2405; J2704; J3010